=== PATIENT | male | born 1935 | race African-American/Black ===

== ENCOUNTER 2019-07-05 00:30 | Inpatient (IN) ==
[2019-07-05] MEDS ORDERED: ACETAMINOPHEN 325 MG TABLET PO PRN (03:53)
[2019-07-05] MEDS ORDERED: ONDANSETRON 4 MG/2 ML VIAL IV PRN (03:53)
[2019-07-05] MEDS ORDERED: DOCUSATE SODIUM 100 MG CAPSULE PO PRN (03:53)
[2019-07-05] MEDS: SODIUM CHLORIDE 0.9% 1,000 ML IV SCH ×2 (04:23→23:29)
[2019-07-05 04:36] LABS: Basophils % 0.8 % (0.0-0.8); Hematocrit 32.9 VOL% (42.0-52.0); Hemoglobin 11.1 GM/DL (14.0-18.0); Immature Granulocytes % 1.6 %; Immature Granulocytes Absolute 0.04 #; Lymphocytes # 1.3 10*3/uL (1.4-4.0); Lymphocytes % 49.4 % (21.2-54.2); Mean Corpuscular HGB Conc 33.7 GM/DL (32-36); Mean Corpuscular Volume 74.1 FL (87-102); Monocytes % 38.1 % (1.7-12.7); Neutrophils % 10.1 % (38.7-73.9); Platelet Count 192 T/CUMM (130-400); Red Blood Count 4.44 MC/CUMM (3.8-5.5); Red Cell Distribution Width 16.6 % (9.3-17.3); White Blood Count 2.6 T/CUMM (4-12)
[2019-07-05 04:58] LABS: Atypical Lymphocytes Few; Hypochromasia Slight; Lymphocytes 50 % (20-55); Nucleated Red Blood Cells 1 (0-5); Platelet Estimate Adequate; Segmented Neutrophils 16 % (50-85); Total Cells Counted 100
[2019-07-05 05:01] LABS: Albumin 2.6 G/DL (3.4-5.0); Bilirubin,Total 1.1 MG/DL (0.2-1.0); Calcium 7.9 MG/DL (8.5-10.1); Osmolality,Calculated 279.5 MOS/KG (273-304); Total Protein 5.6 G/DL (6.4-8.3)
[2019-07-05 05:09] LABS: Apearance,Urine CLEAR (Clear); Bilirubin,Urine Negative (Negative); Blood, Urine Negative (Negative); Glucose,Urine (UA) Negative (Negative); Ketones,Urine 5 mg/dL (Negative); Mucus,Urine Occasional /LPF (Occasional); Nitrite,Urine Negative (Negative); Protein,Urine Negative; RBC,Urine 1 /HPF (0-4); Squamous Epithelial Cell,Urine Occasional /HPF (0-10); Urine Color Yellow (Yellow); Urine Specific Gravity 1.012 (1.001-1.035); Urine Urobilinogen < 2.0 EU/DL (0.2-1.0); WBC,Urine <1 /HPF (0-6)
[2019-07-05] MEDS: METOPROLOL SUCCINATE XL 50 MG TABLET PO SCH ×2 (08:16→20:11)
[2019-07-05] MEDS ORDERED: SODIUM CHLORIDE 0.9% 500 ML IV ONE (08:44)
[2019-07-05] MEDS ORDERED: SODIUM CHLORIDE 0.9% 1,000 ML IV ONE ×2 (08:52→08:55)
[2019-07-05] MEDS ORDERED: ENOXAPARIN 40 MG/0.4 ML SYRINGE SUBCUT SCH (09:00)
[2019-07-05] MEDS ORDERED: PANTOPRAZOLE 40 MG TABLET PO SCH (09:00)
[2019-07-05] MEDS ORDERED: MAGNESIUM SULF RIDER 4 GM in PREMIX 1 EACH IV PRN (09:07)
[2019-07-05] MEDS ORDERED: MAGNESIUM SULF RIDER 2 GM in PREMIX 1 EACH IV PRN (09:07)
[2019-07-05] MEDS ORDERED: DIGOXIN 0.5 MG/2 ML AMP IV ONE ×2 (09:17→10:06)
[2019-07-05] MEDS: FILGRASTIM-SNDZ 300 MCG/0.5 ML SYRINGE SUBCUT SCH (09:41)
[2019-07-05] MEDS: FINASTERIDE 5 MG TABLET PO SCH (09:42)
[2019-07-05] MEDS: ASPIRIN EC 81 MG TABLET PO SCH (09:43)
[2019-07-05] MEDS: TAMSULOSIN 0.4 MG CAPSULE PO SCH (09:43)
[2019-07-05] MEDS ORDERED: AMIODARONE INJ 150 MG in DEXTROSE 5% 100 ML IV ONE ×2 (11:38→14:02)
[2019-07-05] MEDS ORDERED: AMIODARONE INJ 450 MG in DEXTROSE 5% 241 ML IV SCH ×3 (12:00→18:00)
[2019-07-05] MEDS ORDERED: POLYETHYLENE GLYCOL POWDER 17 GM PACK PO PRN (14:02)
[2019-07-05] MEDS: PANTOPRAZOLE 40 MG TABLET PO SCH (20:11)
[2019-07-05] MEDS ORDERED: APIXABAN 5 MG TABLET PO SCH (21:00)
[2019-07-06 04:56] LABS: Basophils % 0.8 % (0.0-0.8); Eosinophils % 0.2 % (0.00-10.9); Hematocrit 29.6 VOL% (42.0-52.0); Immature Granulocytes % 0.4 %; Immature Granulocytes Absolute 0.02 #; Lymphocytes # 1.8 10*3/uL (1.4-4.0); Mean Corpuscular HGB Conc 33.8 GM/DL (32-36); Mean Corpuscular Volume 74.9 FL (87-102); Mean Platelet Volume 9.1 FL (9.6-12.0); Monocytes % 35.4 % (1.7-12.7); NRBC # 0.03 10*3/uL; Neutrophils % 29.2 % (38.7-73.9); Platelet Count 184 T/CUMM (130-400); Red Blood Count 3.95 MC/CUMM (3.8-5.5); Red Cell Distribution Width 16.6 % (9.3-17.3); White Blood Count 5.2 T/CUMM (4-12)
[2019-07-06 05:16] LABS: Calcium 7.7 MG/DL (8.5-10.1); Osmolality,Calculated 278.4 MOS/KG (273-304)
[2019-07-06 05:19] LABS: Atypical Lymphocytes Few; Band Neutrophils 7 % (0-10); Eosinophils 1 % (0-10); Hypochromasia 1+; Lymphocytes 36 % (20-55); Myelocytes 1 %; Platelet Estimate Adequate; Segmented Neutrophils 23 % (50-85); Total Cells Counted 100
[2019-07-06] MEDS ORDERED: LIDOCAINE 1% 5 ML VIAL ONE (09:00)
[2019-07-06] MEDS ORDERED: PROPOFOL 200 MG/20 ML VIAL IV ONE (09:00)
[2019-07-06] MEDS ORDERED: AMIODARONE 200 MG TABLET PO ONE (09:15)
[2019-07-06] MEDS: FILGRASTIM-SNDZ 300 MCG/0.5 ML SYRINGE SUBCUT SCH (13:54)
[2019-07-06] MEDS: METOPROLOL SUCCINATE XL 50 MG TABLET PO SCH ×2 (13:55→20:45)
[2019-07-06] MEDS: FINASTERIDE 5 MG TABLET PO SCH (13:55)
[2019-07-06] MEDS: ASPIRIN EC 81 MG TABLET PO SCH (13:55)
[2019-07-06] MEDS: PANTOPRAZOLE 40 MG TABLET PO SCH ×2 (13:55→20:45)
[2019-07-06] MEDS: TAMSULOSIN 0.4 MG CAPSULE PO SCH (13:56)
[2019-07-06] MEDS: SODIUM CHLORIDE 0.9% 1,000 ML IV SCH (15:07)
[2019-07-06] MEDS: AMIODARONE 200 MG TABLET PO SCH (20:45)
[2019-07-07 05:05] LABS: Basophils % 0.3 % (0.0-0.8); Eosinophils % 0.1 % (0.00-10.9); Hematocrit 29.8 VOL% (42.0-52.0); Immature Granulocytes % 2.9 %; Immature Granulocytes Absolute 0.44 #; Lymphocytes # 1.8 10*3/uL (1.4-4.0); Lymphocytes % 11.5 % (21.2-54.2); Mean Corpuscular HGB Conc 33.6 GM/DL (32-36); Mean Corpuscular Volume 74.5 FL (87-102); Mean Platelet Volume 9.3 FL (9.6-12.0); Monocytes % 13.1 % (1.7-12.7); NRBC # 0.05 10*3/uL; Neutrophils % 72.1 % (38.7-73.9); Platelet Count 229 T/CUMM (130-400); Red Cell Distribution Width 16.8 % (9.3-17.3); White Blood Count 15.2 T/CUMM (4-12)
[2019-07-07 05:40] LABS: Atypical Lymphocytes Few; Band Neutrophils 9 % (0-10); Hypochromasia 1+; Lymphocytes 13 % (20-55); Metamyelocytes 2 %; Nucleated Red Blood Cells 2 (0-5); Segmented Neutrophils 67 % (50-85); Total Cells Counted 100
[2019-07-07 05:41] LABS: Microcytosis 1+; Platelet Estimate Normal
[2019-07-07 05:48] LABS: Albumin 2.3 G/DL (3.4-5.0); Bilirubin,Total 1.4 MG/DL (0.2-1.0); Calcium 7.8 MG/DL (8.5-10.1); Osmolality,Calculated 283.1 MOS/KG (273-304); Total Protein 5.1 G/DL (6.4-8.3)
[2019-07-07] MEDS: METOPROLOL SUCCINATE XL 50 MG TABLET PO SCH (09:11)
[2019-07-07] MEDS: FINASTERIDE 5 MG TABLET PO SCH (09:11)
[2019-07-07] MEDS: AMIODARONE 200 MG TABLET PO SCH (09:11)
[2019-07-07] MEDS: FILGRASTIM-SNDZ 300 MCG/0.5 ML SYRINGE SUBCUT SCH (09:11)
[2019-07-07] MEDS: TAMSULOSIN 0.4 MG CAPSULE PO SCH (09:11)
[2019-07-07] MEDS: PANTOPRAZOLE 40 MG TABLET PO SCH (09:11)
[2019-07-07] MEDS: ASPIRIN EC 81 MG TABLET PO SCH (09:11)
[2019-07-07] MEDS: SODIUM CHLORIDE 0.9% 1,000 ML IV SCH (11:18)
[2019-07-07 12:31] VITALS: BP 141/62
== END 2019-07-07 16:54 | disposition home or self-care (01) | DRG 640 ==
LOC: N.4E → SUATTDRO 03:53 → N.TELEN 13:20
PROVIDERS: ADMIT Internal Medicine; ATTEND Internal Medicine

== ENCOUNTER 2019-11-11 09:29 | Inpatient (IN) ==
[2019-11-11] MEDS ORDERED: ONDANSETRON 4 MG/2 ML VIAL IV STA (09:45)
[2019-11-11] MEDS ORDERED: methylPREDNISolone SOD SUC 125 MG/2 ML VIAL IV STA (09:45)
[2019-11-11] MEDS ORDERED: ALBUTEROL/IPRATROPIUM 3 ML NEB RESP TX STA (09:45)
[2019-11-11 10:08] LABS: Basophils % 0.2 % (0.0-0.8); Eosinophils % 0.3 % (0.00-10.9); Hematocrit 38.9 VOL% (42.0-52.0); Hemoglobin 13.3 GM/DL (14.0-18.0); Immature Granulocytes % 0.5 %; Immature Granulocytes Absolute 0.07 #; Lymphocytes # 2.5 10*3/uL (1.4-4.0); Lymphocytes % 16.4 % (21.2-54.2); Mean Corpuscular HGB Conc 34.2 GM/DL (32-36); Mean Corpuscular Volume 75.1 FL (87-102); Mean Platelet Volume 9.1 FL (9.6-12.0); Monocytes % 12.9 % (1.7-12.7); Neutrophils % 69.7 % (38.7-73.9); Platelet Count 235 T/CUMM (130-400); Red Blood Count 5.18 MC/CUMM (3.8-5.5); Red Cell Distribution Width 15.6 % (9.3-17.3); White Blood Count 15.2 T/CUMM (4-12)
[2019-11-11 10:20] LABS: PT Patient Result 10.9 SECS (9.6-12.2)
[2019-11-11] MEDS ORDERED: LEVOFLOXACIN INJ 750 MG in PREMIX 1 EACH IV STA (10:28)
[2019-11-11 10:39] LABS: Alanine Aminotransferase 13 U/L (16-61); Albumin 3.2 G/DL (3.4-5.0); Alkaline Phosphatase 49 U/L (45-117); Aspartate Amino Transferase 15 U/L (0-37); Blood Urea Nitrogen 16 MG/DL (7-18); Calcium 8.8 MG/DL (8.5-10.1); Estimated Glom Filtration Rate 75 ML/MIN; Glucose 109 MG/DL (74-106); Osmolality,Calculated 276.7 MOS/KG (273-304); Total Protein 6.8 G/DL (6.4-8.3); Troponin I < 0.015 NG/ML (0.00-0.045)
[2019-11-11 11:25] LABS: Apearance,Urine CLEAR (Clear); Bilirubin,Urine Negative (Negative); Blood, Urine Negative (Negative); Glucose,Urine (UA) Negative (Negative); Ketones,Urine Negative (Negative); Mucus,Urine Occasional /LPF (Occasional); Nitrite,Urine Negative (Negative); Protein,Urine 30 MG/DL; RBC,Urine <1 /HPF (0-4); Urine Color Yellow (Yellow); WBC,Urine <1 /HPF (0-6)
[2019-11-11] MEDS ORDERED: ENOXAPARIN 80 MG/0.8 ML SYRINGE SUBCUT STA (11:33)
[2019-11-11 11:47] LABS: Barbiturates Screen,Urine Negative (Negative); Benzodiazepines Screen,Urine Negative (Negative); Cannabinoid Screen,Urine Negative (Negative); Opiate Screen,Urine Negative (Negative); Phencyclidine Screen,Urine Negative (Negative)
[2019-11-11] MEDS ORDERED: ACETAMINOPHEN 325 MG TABLET PO PRN (12:27)
[2019-11-11] MEDS ORDERED: ONDANSETRON 4 MG/2 ML VIAL IV PRN (12:27)
[2019-11-11] MEDS ORDERED: PROMETHAZINE 25 MG/1 ML VIAL IM PRN (12:27)
[2019-11-11] MEDS ORDERED: ALBUTEROL 2.5 MG/3 ML NEB RESP TX PRN (12:27)
[2019-11-11] MEDS ORDERED: LACTATED RINGERS 1,000 ML IV SCH (12:30)
[2019-11-11] MEDS ORDERED: NITROGLYCERIN SL 0.4 MG TABLET SL PRN (12:34)
[2019-11-11] MEDS ORDERED: POLYETHYLENE GLYCOL POWDER 17 GM PACK PO PRN (12:34)
[2019-11-11] MEDS ORDERED: ENOXAPARIN 80 MG/0.8 ML SYRINGE SUBCUT SCH (13:00)
[2019-11-11] MEDS ORDERED: HEPARIN DRIP 25,000 UNITS/500 ML PREMIX IV SCH (13:00)
[2019-11-11] MEDS: PANTOPRAZOLE 40 MG VIAL IV SCH (15:01)
[2019-11-11] MEDS: TAMSULOSIN 0.4 MG CAPSULE PO SCH (21:05)
[2019-11-11] MEDS: METOPROLOL SUCCINATE XL 50 MG TABLET PO SCH (21:05)
[2019-11-11] MEDS: DOXEPIN 25 MG CAPSULE PO SCH (21:05)
[2019-11-11] MEDS: DOCUSATE SODIUM 100 MG CAPSULE PO SCH (21:05)
[2019-11-12 03:02] LABS: Basophils % 0.1 % (0.0-0.8); Hemoglobin 12.2 GM/DL (14.0-18.0); Immature Granulocytes % 0.4 %; Immature Granulocytes Absolute 0.07 #; Lymphocytes # 1.8 10*3/uL (1.4-4.0); Lymphocytes % 10.7 % (21.2-54.2); Mean Corpuscular HGB Conc 34.9 GM/DL (32-36); Mean Platelet Volume 8.8 FL (9.6-12.0); Monocytes % 7.8 % (1.7-12.7); Platelet Count 231 T/CUMM (130-400); Red Blood Count 4.73 MC/CUMM (3.8-5.5); Red Cell Distribution Width 15.3 % (9.3-17.3); White Blood Count 16.7 T/CUMM (4-12)
[2019-11-12 03:19] LABS: Albumin 2.7 G/DL (3.4-5.0); Bilirubin,Total 0.7 MG/DL (0.2-1.0); Calcium 8.6 MG/DL (8.5-10.1); Osmolality,Calculated 279.7 MOS/KG (273-304); Total Protein 6.3 G/DL (6.4-8.3)
[2019-11-12] MEDS ORDERED: MAGNESIUM SULF RIDER 4 GM in PREMIX 1 EACH IV PRN (06:57)
[2019-11-12] MEDS ORDERED: MAGNESIUM SULF RIDER 2 GM in PREMIX 1 EACH IV PRN (06:57)
[2019-11-12] MEDS ORDERED: HYDROCORTISONE 2.5% RECTAL CREAM 30 GM TUBE TOP PRN (08:24)
[2019-11-12] MEDS: AMIODARONE 200 MG TABLET PO SCH (08:43)
[2019-11-12] MEDS: DOCUSATE SODIUM 100 MG CAPSULE PO SCH ×2 (08:43→20:31)
[2019-11-12] MEDS: METOPROLOL SUCCINATE XL 50 MG TABLET PO SCH ×2 (08:44→20:32)
[2019-11-12] MEDS: FINASTERIDE 5 MG TABLET PO SCH (08:44)
[2019-11-12] MEDS: PANTOPRAZOLE 40 MG TABLET PO SCH (08:44)
[2019-11-12] MEDS: APIXABAN 5 MG TABLET PO SCH ×2 (08:44→20:31)
[2019-11-12] MEDS: PANTOPRAZOLE 40 MG VIAL IV SCH (13:41)
[2019-11-12] MEDS: TAMSULOSIN 0.4 MG CAPSULE PO SCH (20:31)
[2019-11-12] MEDS: DOXEPIN 25 MG CAPSULE PO SCH (20:31)
[2019-11-13 04:47] LABS: Basophils % 0.3 % (0.0-0.8); Eosinophils # 0.1 10*3/uL (0.0-0.87); Eosinophils % 0.8 % (0.00-10.9); Hematocrit 34.1 VOL% (42.0-52.0); Hemoglobin 11.8 GM/DL (14.0-18.0); Immature Granulocytes % 0.4 %; Immature Granulocytes Absolute 0.04 #; Lymphocytes # 2.4 10*3/uL (1.4-4.0); Lymphocytes % 23.4 % (21.2-54.2); Mean Corpuscular HGB Conc 34.6 GM/DL (32-36); Mean Corpuscular Volume 74.8 FL (87-102); Mean Platelet Volume 9.7 FL (9.6-12.0); Monocytes % 11.3 % (1.7-12.7); Neutrophils % 63.8 % (38.7-73.9); Platelet Count 294 T/CUMM (130-400); Red Blood Count 4.56 MC/CUMM (3.8-5.5); Red Cell Distribution Width 15.5 % (9.3-17.3); White Blood Count 10.2 T/CUMM (4-12)
[2019-11-13] MEDS: APIXABAN 5 MG TABLET PO SCH ×2 (08:54→20:43)
[2019-11-13] MEDS: DOCUSATE SODIUM 100 MG CAPSULE PO SCH (08:54)
[2019-11-13] MEDS: PANTOPRAZOLE 40 MG TABLET PO SCH (08:54)
[2019-11-13] MEDS: FINASTERIDE 5 MG TABLET PO SCH (08:55)
[2019-11-13] MEDS: AMIODARONE 200 MG TABLET PO SCH (08:55)
[2019-11-13] MEDS: METOPROLOL SUCCINATE XL 50 MG TABLET PO SCH ×2 (08:55→20:43)
[2019-11-13] MEDS: PANTOPRAZOLE 40 MG VIAL IV SCH (13:46)
[2019-11-13] MEDS: POLYETHYLENE GLYCOL POWDER 17 GM PACK PO SCH (20:43)
[2019-11-13] MEDS: HYDROCORTISONE 2.5% RECTAL CREAM 30 GM TUBE TOP SCH (20:43)
[2019-11-13] MEDS: DOXEPIN 25 MG CAPSULE PO SCH (20:43)
[2019-11-13] MEDS: TAMSULOSIN 0.4 MG CAPSULE PO SCH (21:03)
[2019-11-14 05:43] LABS: Basophils % 0.5 % (0.0-0.8); Eosinophils # 0.2 10*3/uL (0.0-0.87); Eosinophils % 2.4 % (0.00-10.9); Hematocrit 34.7 VOL% (42.0-52.0); Hemoglobin 11.9 GM/DL (14.0-18.0); Immature Granulocytes % 0.5 %; Immature Granulocytes Absolute 0.04 #; Lymphocytes # 2.2 10*3/uL (1.4-4.0); Lymphocytes % 27.1 % (21.2-54.2); Mean Corpuscular HGB Conc 34.3 GM/DL (32-36); Mean Corpuscular Volume 74.8 FL (87-102); Mean Platelet Volume 8.8 FL (9.6-12.0); Monocytes % 11.3 % (1.7-12.7); Neutrophils % 58.2 % (38.7-73.9); Platelet Count 306 T/CUMM (130-400); Red Blood Count 4.64 MC/CUMM (3.8-5.5); Red Cell Distribution Width 15.3 % (9.3-17.3); White Blood Count 8.1 T/CUMM (4-12)
[2019-11-14 05:56] LABS: Calcium 8.1 MG/DL (8.5-10.1)
[2019-11-14] MEDS: POLYETHYLENE GLYCOL POWDER 17 GM PACK PO SCH ×3 (09:04→22:15)
[2019-11-14] MEDS: AMIODARONE 200 MG TABLET PO SCH (09:05)
[2019-11-14] MEDS: HYDROCORTISONE 2.5% RECTAL CREAM 30 GM TUBE TOP SCH ×3 (09:05→22:15)
[2019-11-14] MEDS: PANTOPRAZOLE 40 MG TABLET PO SCH (09:05)
[2019-11-14] MEDS: METOPROLOL SUCCINATE XL 50 MG TABLET PO SCH ×2 (09:05→22:14)
[2019-11-14] MEDS: APIXABAN 5 MG TABLET PO SCH ×2 (09:05→22:14)
[2019-11-14] MEDS: FINASTERIDE 5 MG TABLET PO SCH (09:05)
[2019-11-14] MEDS: PANTOPRAZOLE 40 MG VIAL IV SCH (17:09)
[2019-11-14] MEDS: DOXEPIN 25 MG CAPSULE PO SCH (22:14)
[2019-11-14] MEDS: TAMSULOSIN 0.4 MG CAPSULE PO SCH (22:14)
[2019-11-15 07:32] LABS: Basophils % 0.5 % (0.0-0.8); Eosinophils # 0.3 10*3/uL (0.0-0.87); Eosinophils % 3.5 % (0.00-10.9); Immature Granulocytes % 0.8 %; Immature Granulocytes Absolute 0.06 #; Lymphocytes # 2.3 10*3/uL (1.4-4.0); Lymphocytes % 29.3 % (21.2-54.2); Mean Corpuscular HGB Conc 34.3 GM/DL (32-36); Mean Corpuscular Volume 75.6 FL (87-102); Neutrophils % 54.9 % (38.7-73.9); Platelet Count 298 T/CUMM (130-400); Red Blood Count 4.63 MC/CUMM (3.8-5.5); Red Cell Distribution Width 15.3 % (9.3-17.3); White Blood Count 7.9 T/CUMM (4-12)
[2019-11-15 07:50] LABS: Calcium 8.1 MG/DL (8.5-10.1)
[2019-11-15] MEDS: PANTOPRAZOLE 40 MG TABLET PO SCH (08:39)
[2019-11-15] MEDS: APIXABAN 5 MG TABLET PO SCH ×2 (08:39→21:00)
[2019-11-15] MEDS: METOPROLOL SUCCINATE XL 50 MG TABLET PO SCH ×2 (08:39→21:01)
[2019-11-15] MEDS: POLYETHYLENE GLYCOL POWDER 17 GM PACK PO SCH ×3 (08:39→21:00)
[2019-11-15] MEDS: FINASTERIDE 5 MG TABLET PO SCH (08:39)
[2019-11-15] MEDS: AMIODARONE 200 MG TABLET PO SCH (08:39)
[2019-11-15] MEDS: HYDROCORTISONE 2.5% RECTAL CREAM 30 GM TUBE TOP SCH ×3 (08:44→21:01)
[2019-11-15] MEDS: PANTOPRAZOLE 40 MG VIAL IV SCH (15:25)
[2019-11-15] MEDS: DOXEPIN 25 MG CAPSULE PO SCH (21:00)
[2019-11-15] MEDS: TAMSULOSIN 0.4 MG CAPSULE PO SCH (21:00)
[2019-11-16 05:24] LABS: Basophils % 0.5 % (0.0-0.8); Eosinophils # 0.4 10*3/uL (0.0-0.87); Hematocrit 35.3 VOL% (42.0-52.0); Hemoglobin 11.9 GM/DL (14.0-18.0); Immature Granulocytes % 1.1 %; Immature Granulocytes Absolute 0.09 #; Lymphocytes # 2.4 10*3/uL (1.4-4.0); Lymphocytes % 29.3 % (21.2-54.2); Mean Corpuscular HGB Conc 33.7 GM/DL (32-36); Mean Corpuscular Volume 75.3 FL (87-102); Mean Platelet Volume 8.6 FL (9.6-12.0); Monocytes % 11.3 % (1.7-12.7); Neutrophils % 52.8 % (38.7-73.9); Platelet Count 273 T/CUMM (130-400); Red Blood Count 4.69 MC/CUMM (3.8-5.5); Red Cell Distribution Width 15.4 % (9.3-17.3); White Blood Count 8.2 T/CUMM (4-12)
[2019-11-16] MEDS: AMIODARONE 200 MG TABLET PO SCH (10:24)
[2019-11-16] MEDS: PANTOPRAZOLE 40 MG TABLET PO SCH (10:24)
[2019-11-16] MEDS: APIXABAN 5 MG TABLET PO SCH (10:24)
[2019-11-16] MEDS: METOPROLOL SUCCINATE XL 50 MG TABLET PO SCH (10:25)
[2019-11-16] MEDS: POLYETHYLENE GLYCOL POWDER 17 GM PACK PO SCH (10:25)
[2019-11-16] MEDS: FINASTERIDE 5 MG TABLET PO SCH (10:25)
[2019-11-16] MEDS: HYDROCORTISONE 2.5% RECTAL CREAM 30 GM TUBE TOP SCH (10:26)
[2019-11-16] MEDS ORDERED: diphenhydrAMINE CAP 50 MG CAPSULE PO ONE (12:31)
[2019-11-16] MEDS ORDERED: ACETAMINOPHEN 325 MG TABLET PO ONE (12:31)
[2019-11-16] MEDS ORDERED: IRON SUCROSE 300 MG in SODIUM CHLORIDE 0.9% 100 ML IV ONE (12:32)
[2019-11-16 13:02] VITALS: BP 132/70
[2019-11-16] MEDS: PANTOPRAZOLE 40 MG VIAL IV SCH (13:25)
[2019-11-16] MEDS ORDERED: HEPARIN LOCK FLUSH 500 UNIT/5 ML SYRINGE IV ONE (15:10)
== END 2019-11-16 15:35 | disposition home or self-care (01) | DRG 176 ==
LOC: N.ED 09:29 → N.EDINP 12:27 → SUATTDRO 12:29 → N.CC 13:37 → N.4E 11-12 10:40
PROVIDERS: ADMIT Family Medicine; ATTEND Internal Medicine

== ENCOUNTER 2021-01-19 20:33 | Inpatient (IN) ==
[2021-01-19 21:00] LABS: Basophils # 0.1 10*3/uL (0.0-0.2); Basophils % 0.6 % (0.0-0.8); Eosinophils # 0.8 10*3/uL (0.0-0.87); Eosinophils % 7.1 % (0.00-10.9); Hematocrit 41.6 VOL% (42.0-52.0); Hemoglobin 13.9 GM/DL (14.0-18.0); Immature Granulocytes % 0.4 %; Immature Granulocytes Absolute 0.04 #; Lymphocytes # 2.4 10*3/uL (1.4-4.0); Lymphocytes % 22.5 % (21.2-54.2); Mean Corpuscular HGB Conc 33.4 GM/DL (32-36); Mean Corpuscular Volume 75.9 FL (87-102); Mean Platelet Volume 8.7 FL (9.6-12.0); Monocytes % 9.4 % (1.7-12.7); Platelet Count 312 T/CUMM (130-400); Red Blood Count 5.48 MC/CUMM (3.8-5.5); White Blood Count 10.5 T/CUMM (4-12)
[2021-01-19 21:30] LABS: Albumin 3.8 G/DL (3.4-5.0); Bilirubin,Total 0.5 MG/DL (0.2-1.0); Calcium 9.1 MG/DL (8.5-10.1); Osmolality,Calculated 275.7 MOS/KG (273-304); Potassium 4.5 MMOL/L (3.5-5.1); Total Protein 7.4 G/DL (6.4-8.3)
[2021-01-19] MEDS ORDERED: GLUCAGON 1 MG VIAL IM PRN (22:21)
[2021-01-19] MEDS ORDERED: ONDANSETRON 4 MG/2 ML VIAL IV PRN (22:21)
[2021-01-19] MEDS ORDERED: CALCIUM CARBONATE CHEW 500 MG TABLET PO PRN (22:21)
[2021-01-19] MEDS ORDERED: DEXTROSE 50% 25 GM/50 ML VIAL IV PRN (22:21)
[2021-01-19] MEDS ORDERED: ALUMINUM/MAGNES/SIMETH MAX STR 30 ML UDCUP PO PRN (22:21)
[2021-01-19] MEDS ORDERED: ENOXAPARIN 40 MG/0.4 ML SYRINGE SUBCUT SCH (22:30)
[2021-01-19] MEDS: ACETAMINOPHEN 325 MG TABLET PO PRN (22:43)
[2021-01-20] MEDS: NITROGLYCERIN 2% OINT 1 INCH/GM PACK TOP SCH ×5 (02:18→23:25)
[2021-01-20 06:10] LABS: Risk Ratio 5.32; VLDL CHOLESTEROL 41.6 MG/DL
[2021-01-20] MEDS ORDERED: ASPIRIN EC 325 MG TABLET PO SCH (09:00)
[2021-01-20] MEDS ORDERED: NITROGLYCERIN SL 0.4 MG TABLET SL PRN (09:40)
[2021-01-20] MEDS ORDERED: ALBUTEROL 2.5 MG/3 ML NEB RESP TX PRN (09:40)
[2021-01-20] MEDS ORDERED: HEPARIN LOCK FLUSH 500 UNIT/5 ML SYRINGE IV ONE (09:57)
[2021-01-20] MEDS: SIMETHICONE CHEW 80 MG TABLET PO SCH ×2 (17:08→21:15)
[2021-01-20] MEDS: DOCUSATE SODIUM 100 MG CAPSULE PO SCH (21:15)
[2021-01-20] MEDS: TAMSULOSIN 0.4 MG CAPSULE PO SCH (21:15)
[2021-01-20] MEDS: DOXEPIN 25 MG CAPSULE PO SCH (21:16)
[2021-01-20] MEDS: ACETAMINOPHEN 325 MG TABLET PO PRN (21:16)
[2021-01-20] MEDS: METOPROLOL SUCCINATE XL 50 MG TABLET PO SCH (21:16)
[2021-01-20] MEDS: FINASTERIDE 5 MG TABLET PO SCH (21:16)
[2021-01-21] MEDS: NITROGLYCERIN 2% OINT 1 INCH/GM PACK TOP SCH ×3 (06:07→18:18)
[2021-01-21 07:47] LABS: Basophils % 0.5 % (0.0-0.8); Eosinophils # 0.7 10*3/uL (0.0-0.87); Eosinophils % 7.9 % (0.00-10.9); Hematocrit 35.4 VOL% (42.0-52.0); Hemoglobin 12.6 GM/DL (14.0-18.0); Immature Granulocytes % 0.2 %; Immature Granulocytes Absolute 0.02 #; Lymphocytes % 35.5 % (21.2-54.2); Mean Corpuscular HGB Conc 35.6 GM/DL (32-36); Mean Corpuscular Volume 73.4 FL (87-102); Mean Platelet Volume 8.6 FL (9.6-12.0); Monocytes % 11.8 % (1.7-12.7); Neutrophils % 44.1 % (38.7-73.9); Platelet Count 247 T/CUMM (130-400); Red Blood Count 4.82 MC/CUMM (3.8-5.5); Red Cell Distribution Width 15.9 % (9.3-17.3); White Blood Count 8.3 T/CUMM (4-12)
[2021-01-21 08:17] LABS: Albumin 3.3 G/DL (3.4-5.0); Bilirubin,Total 0.5 MG/DL (0.2-1.0); Calcium 8.6 MG/DL (8.5-10.1); Osmolality,Calculated 277.5 MOS/KG (273-304); Potassium 4.2 MMOL/L (3.5-5.1); Total Protein 6.5 G/DL (6.4-8.3)
[2021-01-21] MEDS: ASPIRIN EC 81 MG TABLET PO SCH (08:53)
[2021-01-21] MEDS: ROSUVASTATIN 10 MG TABLET PO SCH (08:53)
[2021-01-21] MEDS: SIMETHICONE CHEW 80 MG TABLET PO SCH ×4 (08:55→20:21)
[2021-01-21] MEDS: POLYETHYLENE GLYCOL POWDER 17 GM PACK PO SCH (08:55)
[2021-01-21] MEDS: PANTOPRAZOLE 40 MG TABLET PO SCH (08:55)
[2021-01-21] MEDS: METOPROLOL SUCCINATE XL 50 MG TABLET PO SCH ×2 (08:55→20:21)
[2021-01-21] MEDS ORDERED: fentaNYL 12 MCG/HR PATCH TRANSDERM SCH (09:00)
[2021-01-21] MEDS: DOCUSATE SODIUM 100 MG CAPSULE PO SCH (20:21)
[2021-01-21] MEDS: DOXEPIN 25 MG CAPSULE PO SCH (20:21)
[2021-01-21] MEDS: FINASTERIDE 5 MG TABLET PO SCH (20:21)
[2021-01-21] MEDS: TAMSULOSIN 0.4 MG CAPSULE PO SCH (20:22)
[2021-01-22] MEDS: NITROGLYCERIN 2% OINT 1 INCH/GM PACK TOP SCH ×5 (00:16→23:37)
[2021-01-22 06:42] LABS: Basophils # 0.1 10*3/uL (0.0-0.2); Basophils % 0.6 % (0.0-0.8); Eosinophils # 0.6 10*3/uL (0.0-0.87); Eosinophils % 7.1 % (0.00-10.9); Hematocrit 36.3 VOL% (42.0-52.0); Hemoglobin 12.8 GM/DL (14.0-18.0); Immature Granulocytes % 0.6 %; Immature Granulocytes Absolute 0.05 #; Lymphocytes # 2.5 10*3/uL (1.4-4.0); Lymphocytes % 30.5 % (21.2-54.2); Mean Corpuscular HGB Conc 35.3 GM/DL (32-36); Mean Corpuscular Volume 73.3 FL (87-102); Mean Platelet Volume 8.7 FL (9.6-12.0); Monocytes % 10.9 % (1.7-12.7); Neutrophils % 50.3 % (38.7-73.9); Platelet Count 248 T/CUMM (130-400); Red Blood Count 4.95 MC/CUMM (3.8-5.5); Red Cell Distribution Width 15.7 % (9.3-17.3); White Blood Count 8.3 T/CUMM (4-12)
[2021-01-22 06:55] LABS: Albumin 3.3 G/DL (3.4-5.0); Bilirubin,Total 0.8 MG/DL (0.2-1.0); Calcium 9.1 MG/DL (8.5-10.1); Osmolality,Calculated 276.7 MOS/KG (273-304); Potassium 4.5 MMOL/L (3.5-5.1); Total Protein 6.9 G/DL (6.4-8.3)
[2021-01-22] MEDS: LACTATED RINGERS 1,000 ML IV SCH (07:35)
[2021-01-22] MEDS ORDERED: propofoL 200 MG/20 ML VIAL IV ONE (08:33)
[2021-01-22] MEDS ORDERED: ETOMIDATE 20 MG/10 ML VIAL IV ONE (08:33)
[2021-01-22] MEDS ORDERED: LIDOCAINE 2% 5 ML VIAL ONE (08:33)
[2021-01-22] MEDS: SIMETHICONE CHEW 80 MG TABLET PO SCH ×4 (11:00→20:56)
[2021-01-22] MEDS: PANTOPRAZOLE 40 MG TABLET PO SCH (11:00)
[2021-01-22] MEDS: ROSUVASTATIN 10 MG TABLET PO SCH (11:00)
[2021-01-22] MEDS: ASPIRIN EC 81 MG TABLET PO SCH (11:00)
[2021-01-22] MEDS: METOCLOPRAMIDE 10 MG/10 ML UDCUP PO SCH ×3 (11:01→20:56)
[2021-01-22] MEDS: METOPROLOL SUCCINATE XL 50 MG TABLET PO SCH ×2 (11:01→20:55)
[2021-01-22] MEDS: LINACLOTIDE 145 MCG CAPSULE PO SCH (11:01)
[2021-01-22] MEDS: POLYETHYLENE GLYCOL POWDER 17 GM PACK PO SCH (11:02)
[2021-01-22] MEDS ORDERED: DIAZEPAM 5 MG TABLET PO ONE (13:28)
[2021-01-22] MEDS: FINASTERIDE 5 MG TABLET PO SCH (20:55)
[2021-01-22] MEDS: APIXABAN 2.5 MG TABLET PO SCH (20:55)
[2021-01-22] MEDS: DOXEPIN 25 MG CAPSULE PO SCH (20:55)
[2021-01-22] MEDS: DOCUSATE SODIUM 100 MG CAPSULE PO SCH (20:56)
[2021-01-22] MEDS: TAMSULOSIN 0.4 MG CAPSULE PO SCH (20:56)
[2021-01-23 05:56] LABS: Basophils # 0.1 10*3/uL (0.0-0.2); Basophils % 0.6 % (0.0-0.8); Eosinophils # 0.5 10*3/uL (0.0-0.87); Eosinophils % 6.5 % (0.00-10.9); Hematocrit 36.9 VOL% (42.0-52.0); Hemoglobin 12.7 GM/DL (14.0-18.0); Immature Granulocytes % 0.2 %; Immature Granulocytes Absolute 0.02 #; Lymphocytes # 2.6 10*3/uL (1.4-4.0); Lymphocytes % 32.1 % (21.2-54.2); Mean Corpuscular HGB Conc 34.4 GM/DL (32-36); Mean Corpuscular Volume 74.4 FL (87-102); Mean Platelet Volume 9.2 FL (9.6-12.0); Monocytes % 12.5 % (1.7-12.7); Neutrophils % 48.1 % (38.7-73.9); Platelet Count 263 T/CUMM (130-400); Red Blood Count 4.96 MC/CUMM (3.8-5.5); Red Cell Distribution Width 15.7 % (9.3-17.3)
[2021-01-23] MEDS: NITROGLYCERIN 2% OINT 1 INCH/GM PACK TOP SCH ×3 (06:11→12:51)
[2021-01-23 06:19] LABS: Albumin 3.3 G/DL (3.4-5.0); Bilirubin,Total 1.5 MG/DL (0.2-1.0); Calcium 8.9 MG/DL (8.5-10.1); Osmolality,Calculated 275.8 MOS/KG (273-304); Potassium 4.3 MMOL/L (3.5-5.1); Total Protein 6.5 G/DL (6.4-8.3)
[2021-01-23] MEDS ORDERED: CLOPIDOGREL 75 MG TABLET PO SCH (09:00)
[2021-01-23] MEDS: LINACLOTIDE 145 MCG CAPSULE PO SCH (09:33)
[2021-01-23] MEDS: APIXABAN 2.5 MG TABLET PO SCH (09:33)
[2021-01-23] MEDS: ROSUVASTATIN 10 MG TABLET PO SCH (09:33)
[2021-01-23] MEDS: SIMETHICONE CHEW 80 MG TABLET PO SCH (09:33)
[2021-01-23] MEDS: PANTOPRAZOLE 40 MG TABLET PO SCH (09:33)
[2021-01-23] MEDS: ASPIRIN EC 81 MG TABLET PO SCH (09:34)
[2021-01-23] MEDS: METOPROLOL SUCCINATE XL 50 MG TABLET PO SCH (09:34)
[2021-01-23] MEDS: LACTATED RINGERS 1,000 ML IV SCH (09:34)
[2021-01-23] MEDS: METOCLOPRAMIDE 10 MG/10 ML UDCUP PO SCH (09:34)
[2021-01-23 13:48] VITALS: BP 102/57
== END 2021-01-23 13:41 | disposition home health service (06) | DRG 542 ==
LOC: N.ED 20:33 → N.EDINP 20:33 → N.TELEN 01-20 04:19
PROVIDERS: ADMIT Internal Medicine; ATTEND Internal Medicine

== ENCOUNTER 2021-10-05 11:53 | Observation (INO) ==
[2021-10-05 14:24] LABS: Basophils % 0.2 % (0.0-0.8); Eosinophils % 0.1 % (0.00-10.9); Hematocrit 29.2 VOL% (42.0-52.0); Hemoglobin 9.9 GM/DL (14.0-18.0); Immature Granulocytes % 0.8 %; Immature Granulocytes Absolute 0.11 #; Lymphocytes # 0.5 10*3/uL (1.4-4.0); Lymphocytes % 4.1 % (21.2-54.2); Mean Corpuscular HGB Conc 33.9 GM/DL (32-36); Mean Corpuscular Volume 69.5 FL (87-102); Mean Platelet Volume 8.7 FL (9.6-12.0); Monocytes % 7.4 % (1.7-12.7); NRBC # 0.02 10*3/uL; Neutrophils % 87.4 % (38.7-73.9); Platelet Count 343 T/CUMM (130-400); Red Cell Distribution Width 16.9 % (9.3-17.3); White Blood Count 13.2 T/CUMM (4-12)
[2021-10-05 14:45] LABS: Alanine Aminotransferase 23 U/L (16-61); Albumin 2.9 G/DL (3.4-5.0); Alkaline Phosphatase 60 U/L (45-117); Aspartate Amino Transferase 22 U/L (0-37); Blood Urea Nitrogen 29 MG/DL (7-18); Calcium 8.8 MG/DL (8.5-10.1); Carbon Dioxide 22 MMOL/L (21-32); Estimated Glom Filtration Rate 42 ML/MIN; Glucose 94 MG/DL (74-106); Osmolality,Calculated 269.5 MOS/KG (273-304); Potassium 5.2 MMOL/L (3.5-5.1); Sodium 132 MMOL/L (136-145); Total Protein 6.1 G/DL (6.4-8.2)
[2021-10-05] MEDS ORDERED: ONDANSETRON 4 MG/2 ML VIAL IV STA (16:44)
[2021-10-05] MEDS ORDERED: HYDROmorphone 2 MG/1 ML VIAL IV STA (16:44)
[2021-10-05] MEDS ORDERED: ONDANSETRON 4 MG/2 ML VIAL IV PRN (17:32)
[2021-10-05] MEDS ORDERED: GLUCAGON 1 MG VIAL IM PRN (17:32)
[2021-10-05] MEDS ORDERED: DEXTROSE 50% 25 GM/50 ML VIAL IV PRN (17:32)
[2021-10-05] MEDS ORDERED: BISACODYL 5 MG TABLET PO PRN (17:56)
[2021-10-05] MEDS ORDERED: NITROGLYCERIN SL 0.4 MG TABLET SL PRN (17:56)
[2021-10-05] MEDS ORDERED: DOCUSATE/SENNA 50-8.6 MG TABLET PO PRN (17:56)
[2021-10-05 17:58] LABS: Bilirubin,Urine Negative (Negative); Blood, Urine Negative (Negative); Glucose,Urine (UA) Negative (Negative); Hyaline Casts,Urine 5 /LPF (0-3); Ketones,Urine Negative (Negative); Mucus,Urine Occasional /LPF (Occasional); Nitrite,Urine Negative (Negative); Protein,Urine Negative; RBC,Urine 4 /HPF (0-4); Sperm,Urine Occasional /HPF (Negative); Squamous Epithelial Cell,Urine Occasional /HPF (0-10); Urine Appearance CLEAR (Clear); Urine Color Yellow (Yellow); Urine Specific Gravity 1.011 (1.001-1.035); Urine Urobilinogen < 2.0 EU/DL (0.2-1.0)
[2021-10-05] MEDS ORDERED: ENOXAPARIN 40 MG/0.4 ML SYRINGE SUBCUT SCH ×2 (18:00→19:00)
[2021-10-05] MEDS ORDERED: fentaNYL 50 MCG/HR PATCH TRANSDERM SCH (18:00)
[2021-10-05] MEDS ORDERED: HYDROmorphone 2 MG/1 ML VIAL IV PRN (18:06)
[2021-10-05 18:28] LABS: Lymphocytes 4 % (20-55); Nucleated Red Blood Cells 2 (0-5); Segmented Neutrophils 93 % (50-85); Total Cells Counted 100
[2021-10-05 18:29] LABS: Hypochromasia 1+; Microcytosis 1+
[2021-10-05 18:30] LABS: Platelet Estimate Normal; Target Cells 1+
[2021-10-05] MEDS ORDERED: ENOXAPARIN 30 MG/0.3 ML SYRINGE SUBCUT SCH (18:30)
[2021-10-05] MEDS ORDERED: SODIUM POLYSTYRENE SULFATE 15 GM/60 ML BOTTLE PO STA (19:45)
[2021-10-05] MEDS ORDERED: DOXEPIN 25 MG CAPSULE PO SCH (21:00)
[2021-10-05] MEDS: DEXAMETHASONE 4 MG TABLET PO SCH (21:02)
[2021-10-05] MEDS: TAMSULOSIN 0.4 MG CAPSULE PO SCH (21:02)
[2021-10-05] MEDS: METOPROLOL SUCCINATE XL 50 MG TABLET PO SCH (21:02)
[2021-10-05] MEDS: SODIUM CHLORIDE 0.9% 1,000 ML IV SCH (21:03)
[2021-10-05 21:56] LABS: Bilirubin,Urine Negative (Negative); Blood, Urine Negative (Negative); Glucose,Urine (UA) Negative (Negative); Ketones,Urine 5 mg/dL (Negative); Nitrite,Urine Negative (Negative); Protein,Urine Negative; RBC,Urine 8 /HPF (0-4); Squamous Epithelial Cell,Urine Occasional /HPF (0-10); Urine Appearance CLEAR (Clear); Urine Color Yellow (Yellow); Urine Urobilinogen < 2.0 EU/DL (0.2-1.0)
[2021-10-06 06:16] LABS: Basophils % 0.1 % (0.0-0.8); Hematocrit 24.5 VOL% (42.0-52.0); Hemoglobin 8.4 GM/DL (14.0-18.0); Immature Granulocytes % 0.7 %; Immature Granulocytes Absolute 0.07 #; Lymphocytes # 0.3 10*3/uL (1.4-4.0); Lymphocytes % 2.8 % (21.2-54.2); Mean Corpuscular HGB Conc 34.3 GM/DL (32-36); Mean Corpuscular Volume 69.8 FL (87-102); Mean Platelet Volume 8.5 FL (9.6-12.0); Monocytes % 2.6 % (1.7-12.7); Neutrophils % 93.8 % (38.7-73.9); Platelet Count 293 T/CUMM (130-400); Red Blood Count 3.51 MC/CUMM (3.8-5.5); Red Cell Distribution Width 16.7 % (9.3-17.3); White Blood Count 10.5 T/CUMM (4-12)
[2021-10-06 06:42] LABS: Hypochromasia 1+; Lymphocytes 5 % (20-55); Microcytosis 1+; Platelet Estimate Adequate; Segmented Neutrophils 93 % (50-85); Total Cells Counted 100
[2021-10-06 06:48] LABS: Calcium 8.3 MG/DL (8.5-10.1); Osmolality,Calculated 273.2 MOS/KG (273-304); Potassium 5.3 MMOL/L (3.5-5.1)
[2021-10-06] MEDS ORDERED: LORazepam 0.5 MG TABLET PO SCH (09:00)
[2021-10-06] MEDS ORDERED: FINASTERIDE 5 MG TABLET PO SCH (09:00)
[2021-10-06] MEDS ORDERED: fentaNYL 75 MCG/HR PATCH TRANSDERM SCH (09:00)
[2021-10-06] MEDS: METOPROLOL SUCCINATE XL 50 MG TABLET PO SCH (09:16)
[2021-10-06] MEDS: DEXAMETHASONE 4 MG TABLET PO SCH (09:16)
[2021-10-06] MEDS: TAMSULOSIN 0.4 MG CAPSULE PO SCH (09:16)
[2021-10-06 12:23] VITALS: BP 121/57
[2021-10-06] MEDS: SODIUM CHLORIDE 0.9% 1,000 ML IV SCH (13:36)
== END 2021-10-06 13:30 | disposition hospice, home (50) ==
LOC: N.ED 11:53 → N.EDINP 11:53 → N.2W 18:21
PROVIDERS: ADMIT Internal Medicine; ATTEND Internal Medicine